=== PATIENT | female | born 1995 | race Caucasian/White ===

== ENCOUNTER 2020-01-26 13:41 | Inpatient (IN) | payer OTHER ==
[~2020-01-26] VITALS: Ht 157.4 cm; Wt 56.2 kg
[2020-01-26 15:00] VITALS: BP 124/74
[2020-01-26 15:39] LABS: BASO # 0.1 10*3/uL (0.0-0.1); BASO % 0.6 % (0.0-1.0); EOS # 0.2 10*3/uL (0.0-0.4); EOS % 1.5 % (1.0-4.0); HEMATOCRIT 39.2 % (37.0-47.0); LYMPH # 3.1 10*3/uL (1.3-4.4); LYMPH % 31.3 % (27.0-41.0); MEAN CELL VOLUME 88.7 fl (81.0-99.0); MEAN CORPUSCULAR HGB 29.6 pg (27.0-31.0); MEAN CORPUSCULAR HGB CONC 33.4 g/dl (33.0-37.0); MEAN PLATELET VOLUME 8.9 fl (9.6-12.3); MONO # 0.8 10*3/uL (0.1-1.0); NEUT # 5.9 10*3/uL (2.3-7.9); NEUT % 58.2 % (47.0-73.0); PLATELET COUNT AUTOMATED 380 10*3/uL (130-400); RED BLOOD COUNT 4.42 10*6/uL (4.10-5.10); RED CELL DISTRI WIDTH 12.7 % (0-14.5)
[2020-01-26 15:49] LABS: INTERNATIONAL NORM RATIO 0.9 (2.0-3.5)
[2020-01-26 15:52] LABS: ALBUMIN 3.7 gm/dl (3.1-4.5); ALKALINE PHOSPHATASE 78 U/L (45-117); BUN 14 mg/dl (7-24); CHLORIDE 107 mmol/L (98-107); CREATININE 0.62 mg/dL (0.55-1.02); POTASSIUM 3.9 mmol/L (3.5-5.1); SGOT/AST 22 IU/L (3-35); SGPT/ALT 29 U/L (12-78); SODIUM 140 mmol/L (136-145); TOTAL PROTEIN 7.1 gm/dL (6.4-8.2)
[2020-01-26 15:53] LABS: ETHYL ALCOHOL < 3.0 mg/dl (<3)
[2020-01-26 15:55] LABS: BETA-HCG, QUANT < 1.0 mIU/mL (1-3)
[2020-01-26 15:58] LABS: BILIRUBIN Negative (Negative); BLOOD Negative (Negative); CLARITY Cloudy (Clear); COLOR Yellow (Yellow); GLUCOSE Negative (Negative); KETONE Negative (Negative); LEUKO ESTERASE Negative (Negative); NITRITE Negative (Negative); SPECIFIC GRAVITY 1.025 (1.001-1.030); UROBILINOGEN 0.2 E.U./dl (0.0-1.0)
[2020-01-26 16:17] LABS: URINE AMPHETAMINES < 1000 (1000ng/ml); URINE BARBITURATES < 200 (200ng/ml); URINE BENZODIAZEPINES < 200 (200ng/ml); URINE CANNABINOIDS (THC) < 50 (50ng/ml); URINE COCAINE < 300 (300ng/ml); URINE METHADONE < 300 (300ng/ml); URINE OPIATES < 300 (300ng/ml)
[2020-01-26 16:32] LABS: URINE PHENCYCLIDINE < 25 (25ng/ml)
[2020-01-26 16:35] LABS: BACTERIA TRACE
[2020-01-26 20:00] VITALS: BP 103/41
[2020-01-27] VITALS: BP 102/54
[2020-01-27 08:00] VITALS: BP 122/64
[2020-01-27 12:00] VITALS: BP 126/71
[2020-01-27 16:00] VITALS: BP 139/82
[2020-01-27 20:00] VITALS: BP 122/74; BP 124/59
[2020-01-28] VITALS: BP 129/69
[2020-01-28 08:00] VITALS: BP 129/69
[2020-01-28 16:00] VITALS: BP 132/68
[2020-01-28 20:00] VITALS: BP 131/77
[2020-01-29] VITALS: BP 133/59
[2020-01-29 06:47] LABS: BASO # 0.1 10*3/uL (0.0-0.1); BASO % 0.5 % (0.0-1.0); EOS # 0.2 10*3/uL (0.0-0.4); EOS % 2.5 % (1.0-4.0); LYMPH % 32.6 % (27.0-41.0); MEAN CELL VOLUME 91.3 fl (81.0-99.0); MEAN CORPUSCULAR HGB 29.3 pg (27.0-31.0); MEAN CORPUSCULAR HGB CONC 32.1 g/dl (33.0-37.0); MEAN PLATELET VOLUME 8.8 fl (9.6-12.3); MONO % 11.1 % (3.0-9.0); NEUT # 4.8 10*3/uL (2.3-7.9); NEUT % 52.8 % (47.0-73.0); PLATELET COUNT AUTOMATED 330 10*3/uL (130-400); RED BLOOD COUNT 4.16 10*6/uL (4.10-5.10); WHITE BLOOD COUNT 9.1 10*3/uL (4.8-10.8)
[2020-01-29 08:00] VITALS: BP 135/64
[2020-01-29 12:00] VITALS: BP 127/87
[2020-01-29] MEDS ORDERED: ZOFRAN 4 MG ED2 TAB PO (12:15)
[2020-01-29] MEDS ORDERED: ATARAX,VISTARIL50 MG PO (12:15)
== END 2020-01-29 13:50 | disposition home or self-care (01) | DRG 773 ==
LOC: 5E 13:41
PROVIDERS: Internal Medicine; ADMIT Emergency Medicine; ATTEND Emergency Medicine
DX: F11.23 Opioid dependence with withdrawal (principal); F15.10 Other stimulant abuse, uncomplicated; F17.210 Nicotine dependence, cigarettes, uncomplicated; F41.9 Anxiety disorder, unspecified; Z88.0 Allergy status to penicillin; Z88.1 Allergy status to other antibiotic agents; Z71.6 Tobacco abuse counseling